=== PATIENT | male | born 1950 | race Caucasian/White ===

== ENCOUNTER → 2017-01-19 | Outpatient (CLI) | payer BC | LOC: LAB 06:32 | DX: K90.89 Other intestinal malabsorption (principal) ==

== ENCOUNTER → 2017-05-09 | Outpatient (CLI) | payer BC | LOC: LAB 16:26 | DX: K90.89 Other intestinal malabsorption (principal); Z12.5 Encounter for screening for malignant neoplasm of prostate; E78.2 Mixed hyperlipidemia; N52.03 Combined arterial insufficiency and corporo-venous occlusive erectile dysfunction ==

== ENCOUNTER → 2017-05-11 | Outpatient (CLI) | payer BC | LOC: LAB 10:23 | DX: Z12.11 Encounter for screening for malignant neoplasm of colon (principal) ==

== ENCOUNTER → 2019-09-18 | Outpatient (CLI) | payer BC ==
[2019-09-18 14:26] LABS: EOS # 0.1 (0.04-0.40); EOS % 0.9 % (0.0-4.0); HEMATOCRIT 45.9 % (42.0-52.0); HEMOGLOBIN 15.3 g/dL (13.5-18.0); LYMPH# 1.4 (1.50-4.00); MEAN CELL VOLUME 90 fl (78-100); MEAN CORPUSCULAR HEMOGLOBIN 30 pg (27-31); MEAN CORPUSCULAR HGB CONC 33 g/dL (33-37); MEAN PLATELET VOLUME 9.8 fl (7.4-10.4); MONO # 0.5 (0.20-0.80); NEU # 4.5 (1.40-6.50); PLATELET COUNT 273 K/mm3 (130-400); RED BLOOD COUNT 5.11 M/mm3 (4.20-5.60); RED CELL DISTRIBUTION WIDTH 12.3 % (11.5-14.5); WHITE BLOOD COUNT 6.6 K/mm3 (4.8-10.8)
[2019-09-18 14:33] LABS: ALBUMIN 4.1 g/dL (3.4-4.8); POTASSIUM 3.9 mmol/L (3.5-5.1)
[2019-09-18 14:34] LABS: CALCIUM 9.2 mg/dL (8.3-10.5)
[2019-09-18 14:36] LABS: TOTAL PROTEIN 7.5 g/dL (6.2-8.1)
[2019-09-18 14:38] LABS: TOTAL BILIRUBIN 0.5 mg/dL (0.2-1.2)
[2019-09-18 15:26] LABS: ERYTHROCYTE SEDIMENTATION RATE 5 mm/hr (0-20)
[2019-09-19 02:01] LABS: FOLATE (FOLIC ACID) 10.1 ng/mL (7.0-31.4)
== END ==
LOC: LAB 14:15
PROVIDERS: Internal Medicine
DX: Z00.00 Encounter for general adult medical examination without abnormal findings (principal); Z12.5 Encounter for screening for malignant neoplasm of prostate; Z12.11 Encounter for screening for malignant neoplasm of colon

== ENCOUNTER → 2019-10-08 | Outpatient (CLI) | payer BC | LOC: LAB 07:00 | DX: Z00.00 Encounter for general adult medical examination without abnormal findings (principal); Z12.5 Encounter for screening for malignant neoplasm of prostate; Z12.11 Encounter for screening for malignant neoplasm of colon ==

== ENCOUNTER → 2020-09-12 | Outpatient (CLI) | payer MEDICARE, BC | LOC: RAD 08:12 | DX: M25.562 Pain in left knee (principal) ==

== ENCOUNTER → 2020-09-23 | Outpatient (CLI) | payer MEDICARE, BC | LOC: RAD 07:32 | DX: S83.242A Other tear of medial meniscus, current injury, left knee, initial encounter (principal) ==

== ENCOUNTER → 2020-10-27 | Outpatient (CLI) | payer MEDICARE, BC | LOC: LAB 09:03 | DX: W55.01XA Bitten by cat, initial encounter (principal) ==

== ENCOUNTER → 2021-07-17 | Outpatient (CLI) | payer MEDICARE, BC ==
[2021-07-17 07:31] LABS: BASO # 0.03 (0.02-0.10); EOS # 0.09 (0.04-0.40); EOS % 1.6 % (0.0-4.0); HEMATOCRIT 44.1 % (42.0-52.0); HEMOGLOBIN 14.1 g/dL (13.5-18.0); MEAN CELL VOLUME 91 fl (78-100); MEAN CORPUSCULAR HEMOGLOBIN 29 pg (27-31); MEAN CORPUSCULAR HGB CONC 32 g/dL (33-37); MEAN PLATELET VOLUME 10.1 fl (7.4-10.4); NEU # 3.47 (1.40-6.50); PLATELET COUNT 278 K/mm3 (130-400); RED BLOOD COUNT 4.87 M/mm3 (4.20-5.60); RED CELL DISTRIBUTION WIDTH 12.5 % (11.5-14.5); WHITE BLOOD COUNT 5.5 K/mm3 (4.8-10.8)
[2021-07-17 09:17] LABS: ERYTHROCYTE SEDIMENTATION RATE 5 mm/hr (0-20)
[2021-07-17 09:22] LABS: ALBUMIN 4.1 g/dL (3.4-4.8)
[2021-07-17 09:23] LABS: CALCIUM 9.9 mg/dL (8.3-10.5)
[2021-07-17 09:25] LABS: TOTAL PROTEIN 7.5 g/dL (6.2-8.1)
[2021-07-17 09:27] LABS: TOTAL BILIRUBIN 0.6 mg/dL (0.2-1.2)
== END ==
LOC: LAB 07:05
PROVIDERS: Internal Medicine
DX: Z12.5 Encounter for screening for malignant neoplasm of prostate (principal); I10 Essential (primary) hypertension; E78.2 Mixed hyperlipidemia; K90.9 Intestinal malabsorption, unspecified; Z20.822 Contact with and (suspected) exposure to COVID-19

== ENCOUNTER → 2021-12-28 | Outpatient (CLI) | payer MEDICARE, BC ==
[2021-12-28 18:01] LABS: ALBUMIN 4.3 g/dL (3.4-4.8); POTASSIUM 3.8 mmol/L (3.5-5.1); SODIUM 138 mmol/L (136-145)
[2021-12-28 18:02] LABS: CALCIUM 9.4 mg/dL (8.3-10.5)
[2021-12-28 18:03] LABS: GLUCOSE 103 mg/dL (75-110); TOTAL PROTEIN 7.7 g/dL (6.2-8.1)
[2021-12-28 18:04] LABS: CARBON DIOXIDE 27 mmol/L (23-31)
[2021-12-28 18:05] LABS: TOTAL BILIRUBIN 0.3 mg/dL (0.2-1.2)
[2021-12-28 18:09] LABS: AST-SGOT 19 U/L (5-34)
[2021-12-28 18:10] LABS: ALT/SGPT 22 U/L (0-55)
[2021-12-28 19:23] LABS: D-DIMER 0.52 mg/L FEU (0.15-0.50)
[2021-12-28 20:22] LABS: TROPONIN-I < 0.030 ng/mL (<0.030)
== END ==
LOC: LAB 17:38
PROVIDERS: Internal Medicine
DX: I10 Essential (primary) hypertension (principal); K90.9 Intestinal malabsorption, unspecified; M17.9 Osteoarthritis of knee, unspecified; E78.2 Mixed hyperlipidemia; M54.31 Sciatica, right side; R06.00 Dyspnea, unspecified

== ENCOUNTER → 2021-12-29 | Outpatient (CLI) | payer MEDICARE, BC ==
[2021-12-29 13:50] LABS: BASO # 0.03 K/mm3 (0.02-0.10); EOS # 0.05 K/mm3 (0.04-0.40); EOS % 0.9 % (0.0-4.0); HEMATOCRIT 38.4 % (42.0-52.0); HEMOGLOBIN 12.2 g/dL (13.5-18.0); LYMPH# 1.59 K/mm3 (1.50-4.00); MEAN CELL VOLUME 82 fl (78-100); MEAN CORPUSCULAR HEMOGLOBIN 26 pg (27-31); MEAN CORPUSCULAR HGB CONC 32 g/dL (33-37); MEAN PLATELET VOLUME 9.2 fl (7.4-10.4); MONO # 0.52 K/mm3 (0.20-0.80); NEU # 3.44 K/mm3 (1.40-6.50); PLATELET COUNT 249 K/mm3 (130-400); RED BLOOD COUNT 4.67 M/mm3 (4.20-5.60); RED CELL DISTRIBUTION WIDTH 14.1 % (11.5-14.5); WHITE BLOOD COUNT 5.6 K/mm3 (4.8-10.8)
[2021-12-29 14:57] LABS: ERYTHROCYTE SEDIMENTATION RATE 8 mm/hr (0-20)
== END ==
LOC: RAD 13:00 → LAB 13:02
PROVIDERS: Internal Medicine
DX: I10 Essential (primary) hypertension (principal); K90.9 Intestinal malabsorption, unspecified
CPT/HCPCS: Q9967

== ENCOUNTER → 2022-01-08 | Outpatient (CLI) | payer MEDICARE, BC | LOC: CARDREHAB 01-07 08:46 | DX: R06.00 Dyspnea, unspecified (principal); I10 Essential (primary) hypertension | CPT/HCPCS: A9500 ==

== ENCOUNTER 2022-06-03 01:32 | Emergency (ER) | payer MEDICARE, BC ==
[~2022-06-03] VITALS: Ht 188 cm; Wt 98.2 kg
[2022-06-03 02:05] LABS: BASO # 0.04 K/mm3 (0.02-0.10); EOS # 0.06 K/mm3 (0.04-0.40); HEMATOCRIT 36.1 % (42.0-52.0); HEMOGLOBIN 11.6 g/dL (13.5-18.0); LYMPH# 2.09 K/mm3 (1.50-4.00); MEAN CELL VOLUME 80 fl (78-100); MEAN CORPUSCULAR HEMOGLOBIN 26 pg (27-31); MEAN CORPUSCULAR HGB CONC 32 g/dL (33-37); MEAN PLATELET VOLUME 9.5 fl (7.4-10.4); MONO # 0.45 K/mm3 (0.20-0.80); NEU # 3.44 K/mm3 (1.40-6.50); PLATELET COUNT 252 K/mm3 (130-400); RED BLOOD COUNT 4.49 M/mm3 (4.20-5.60); RED CELL DISTRIBUTION WIDTH 13.8 % (11.5-14.5); WHITE BLOOD COUNT 6.1 K/mm3 (4.8-10.8)
[2022-06-03 02:08] LABS: SODIUM 140 mmol/L (136-145)
[2022-06-03 02:09] LABS: CALCIUM 9.4 mg/dL (8.3-10.5)
[2022-06-03 02:10] LABS: GLUCOSE 111 mg/dL (75-110)
[2022-06-03 02:12] LABS: CARBON DIOXIDE 23 mmol/L (23-31); TOTAL BILIRUBIN 0.4 mg/dL (0.2-1.2)
[2022-06-03 02:16] LABS: AST-SGOT 18 U/L (5-34)
[2022-06-03 02:17] LABS: ALT/SGPT 18 U/L (0-55)
[2022-06-03 02:24] LABS: TROPONIN-I < 0.030 ng/mL (<0.030)
[2022-06-03 02:40] VITALS: BP 138/87
== END 2022-06-03 02:40 | disposition home or self-care (01) ==
LOC: ED 01:32
PROVIDERS: Physician Assistant
DX: R07.89 Other chest pain (principal); Z87.891 Personal history of nicotine dependence; Z28.310 Unvaccinated for COVID-19

== ENCOUNTER → 2022-12-31 | Outpatient (CLI) | payer MEDICARE, BC ==
[2022-12-31 16:41] LABS: BASO # 0.03 K/mm3 (0.02-0.10); EOS # 0.11 K/mm3 (0.04-0.40); EOS % 1.6 % (0.0-4.0); HEMATOCRIT 46.7 % (42.0-52.0); HEMOGLOBIN 14.6 g/dL (13.5-18.0); LYMPH# 1.85 K/mm3 (1.50-4.00); MEAN CELL VOLUME 86 fl (78-100); MEAN CORPUSCULAR HEMOGLOBIN 27 pg (27-31); MEAN CORPUSCULAR HGB CONC 31 g/dL (33-37); MEAN PLATELET VOLUME 9.9 fl (7.4-10.4); MONO # 0.54 K/mm3 (0.20-0.80); PLATELET COUNT 242 K/mm3 (130-400); RED BLOOD COUNT 5.44 M/mm3 (4.20-5.60); RED CELL DISTRIBUTION WIDTH 22.1 % (11.5-14.5); WHITE BLOOD COUNT 6.8 K/mm3 (4.8-10.8)
== END ==
LOC: LAB 16:25
PROVIDERS: Internal Medicine
DX: E61.1 Iron deficiency (principal); D64.9 Anemia, unspecified; Z23 Encounter for immunization

== ENCOUNTER → 2023-11-25 | Outpatient (CLI) | payer MEDICARE, BC | LOC: LAB 13:00 | DX: Z12.5 Encounter for screening for malignant neoplasm of prostate (principal); Z12.11 Encounter for screening for malignant neoplasm of colon; Z11.59 Encounter for screening for other viral diseases; I10 Essential (primary) hypertension; K90.9 Intestinal malabsorption, unspecified; E78.2 Mixed hyperlipidemia ==

== ENCOUNTER → 2024-10-15 | Outpatient (CLI) | payer MEDICARE, BC ==
[2024-10-15 16:49] LABS: BASO # 0.04 K/mm3 (0.02-0.10); EOS # 0.07 K/mm3 (0.04-0.40); EOS % 1.1 % (0.0-4.0); HEMATOCRIT 39.8 % (42.0-52.0); HEMOGLOBIN 12.4 g/dL (13.5-18.0); LYMPH# 1.97 K/mm3 (1.50-4.00); MEAN CELL VOLUME 83 fl (78-100); MEAN CORPUSCULAR HEMOGLOBIN 26 pg (27-31); MEAN CORPUSCULAR HGB CONC 31 g/dL (33-37); MEAN PLATELET VOLUME 9.3 fl (7.4-10.4); MONO # 0.49 K/mm3 (0.20-0.80); PLATELET COUNT 288 K/mm3 (130-400); RED BLOOD COUNT 4.77 M/mm3 (4.20-5.60); RED CELL DISTRIBUTION WIDTH 14.3 % (11.5-14.5); WHITE BLOOD COUNT 6.4 K/mm3 (4.8-10.8)
[2024-10-15 16:54] LABS: ALBUMIN 4.1 g/dL (3.4-4.8)
[2024-10-15 16:55] LABS: CALCIUM 9.3 mg/dL (8.3-10.5)
[2024-10-15 16:56] LABS: TOTAL PROTEIN 7.4 g/dL (6.2-8.1)
[2024-10-15 16:58] LABS: TOTAL BILIRUBIN 0.3 mg/dL (0.2-1.2)
[2024-10-15 17:03] LABS: MAGNESIUM 2.07 mg/dL (1.60-2.60)
[2024-10-15 23:39] LABS: TESTOSTERONE 395 ng/dL (221-716)
== END ==
LOC: LAB 16:31
PROVIDERS: Internal Medicine
DX: F52.21 Male erectile disorder (principal); R06.00 Dyspnea, unspecified

== ENCOUNTER → 2024-10-16 | Outpatient (CLI) | payer MEDICARE, BC ==
[~2024-10-16] MED LIST: Iohexol 350 - 100 ML VIAL IV ONE
== END ==
LOC: RAD 12:58
DX: R06.00 Dyspnea, unspecified (principal); R59.0 Localized enlarged lymph nodes
CPT/HCPCS: Q9967

== ENCOUNTER → 2024-11-01 | Outpatient (CLI) | payer MEDICARE, BC ==
[~2024-11-01] MED LIST changes: -Iohexol 350 - 100 ML VIAL IV ONE; +MAGNESIUM400 MG PO; +PHARMASSURE ZIN50 MG PO; +QUERCETIN500 M1 PO; +VENOFER200 MG/10 IV; +VITAMIN C WIT1000 M2 PO
[2024-11-01 13:50] LABS: BASO # 0.01 K/mm3 (0.02-0.10); EOS # 0.06 K/mm3 (0.04-0.40); EOS % 0.9 % (0.0-4.0); HEMOGLOBIN 13.6 g/dL (13.5-18.0); LYMPH# 1.81 K/mm3 (1.50-4.00); MEAN CELL VOLUME 85 fl (78-100); MEAN CORPUSCULAR HEMOGLOBIN 27 pg (27-31); MEAN CORPUSCULAR HGB CONC 32 g/dL (33-37); MEAN PLATELET VOLUME 10.1 fl (7.4-10.4); MONO # 0.49 K/mm3 (0.20-0.80); NEU # 3.99 K/mm3 (1.40-6.50); PLATELET COUNT 283 K/mm3 (130-400); RED BLOOD COUNT 5.07 M/mm3 (4.20-5.60); WHITE BLOOD COUNT 6.4 K/mm3 (4.8-10.8)
== END ==
LOC: LAB 13:27
PROVIDERS: Internal Medicine
DX: E61.1 Iron deficiency (principal)

== ENCOUNTER → 2024-12-05 | Outpatient (CLI) | payer MEDICARE, BC ==
[2024-12-05 15:56] LABS: BASO # 0.02 K/mm3 (0.02-0.10); EOS # 0.05 K/mm3 (0.04-0.40); EOS % 0.8 % (0.0-4.0); HEMATOCRIT 46.4 % (42.0-52.0); HEMOGLOBIN 16.2 g/dL (13.5-18.0); LYMPH# 1.68 K/mm3 (1.50-4.00); MEAN CELL VOLUME 88 fl (78-100); MEAN CORPUSCULAR HEMOGLOBIN 31 pg (27-31); MEAN CORPUSCULAR HGB CONC 35 g/dL (33-37); MEAN PLATELET VOLUME 9.8 fl (7.4-10.4); MONO # 0.52 K/mm3 (0.20-0.80); NEU # 3.83 K/mm3 (1.40-6.50); PLATELET COUNT 311 K/mm3 (130-400); RED BLOOD COUNT 5.27 M/mm3 (4.20-5.60); RED CELL DISTRIBUTION WIDTH 17.8 % (11.5-14.5); WHITE BLOOD COUNT 6.1 K/mm3 (4.8-10.8)
== END ==
LOC: LAB 15:33
PROVIDERS: Internal Medicine
DX: Z12.5 Encounter for screening for malignant neoplasm of prostate (principal); Z12.11 Encounter for screening for malignant neoplasm of colon; D64.9 Anemia, unspecified; F52.21 Male erectile disorder; I10 Essential (primary) hypertension; K90.9 Intestinal malabsorption, unspecified

== ENCOUNTER → 2024-12-07 | Outpatient (CLI) | payer MEDICARE, BC ==
[~2024-12-07] MED LIST changes: +TIZANIDINE HYDRO4 MG PO
== END ==
LOC: LAB 14:08
DX: Z12.5 Encounter for screening for malignant neoplasm of prostate (principal); Z12.11 Encounter for screening for malignant neoplasm of colon; D64.9 Anemia, unspecified; F52.21 Male erectile disorder

== ENCOUNTER → 2024-12-12 | Outpatient (CLI) | payer MEDICARE, BC | LOC: RAD 08:45 | DX: Z13.89 Encounter for screening for other disorder (principal); R60.0 Localized edema; Z87.891 Personal history of nicotine dependence ==

== ENCOUNTER 2024-12-14 13:37 | Emergency (ER) | payer OTHER ==
[~2024-12-14] VITALS: Ht 188 cm; Wt 102.3 kg
[~2024-12-14 13:37] MED LIST changes: -TIZANIDINE HYDRO4 MG PO
[2024-12-14] MEDS ORDERED: tiZANidine 4 MG TABLET PO ONE (14:15)
[2024-12-14] MEDS ORDERED: TIZANIDINE HYDRO4 MG PO (15:56)
[2024-12-14 16:03] VITALS: BP 132/78
== END 2024-12-14 16:14 | disposition home or self-care (01) ==
LOC: ED 13:37
DX: M25.512 Pain in left shoulder (principal); V89.2XXA Person injured in unspecified motor-vehicle accident, traffic, initial encounter; Y92.410 Unspecified street and highway as the place of occurrence of the external cause